=== PATIENT | female | born 1990 | race Native Hawaiian/Other Pacific Islander ===

== ENCOUNTER 2021-06-29 21:13 | Observation (INO) | payer OTHER ==
[~2021-06-29] VITALS: Ht 167.6 cm; Wt 66.7 kg
[2021-06-29] MEDS ORDERED: LACTATED RINGER'S 1,000 ML IV ONE (21:45)
[2021-06-29] MEDS ORDERED: ONDANSETRON HCL 4 MG/2 ML VIAL IV PRN (21:45)
[2021-06-29] MEDS ORDERED: TERBUTALINE SULFATE 1 MG/ML 1ML VIAL SC SCH (21:45)
[2021-06-29] MEDS ORDERED: LACTATED RINGER'S 1,000 ML IV SCH (21:45)
[2021-06-30 01:05] LABS: Urine Bacteria FEW /hpf (None Seen); Urine Blood Negative /uL (Negative); Urine Mucus FEW (None Seen); Urine Specific Gravity 1.024 (1.001-1.035); Urine WBC 8 /hpf (0 - 5)
[2021-06-30 01:12] LABS: Alcohol, Urine < 3.0 mg/dL (0-10); Amphetamine Screen, Urine NEGATIVE (NEGATIVE); Barbiturate Scree,Urine NEGATIVE (NEGATIVE); Benzodiazephine Screen, Urine NEGATIVE (NEGATIVE); Cannabinoid Screen, Urine NEGATIVE (NEGATIVE); Cocaine Screen, Urine NEGATIVE (NEGATIVE); Opiate Scree,Urine NEGATIVE (NEGATIVE); Phencyclidine Screen, Urine NEGATIVE (NEGATIVE)
== END 2021-06-30 00:22 | disposition home or self-care (01) ==
LOC: LDRP 21:13 → EDBD 21:13
PROVIDERS: ADMIT Obstetrics & Gynecology; ATTEND Obstetrics & Gynecology
DX: O21.2 Late vomiting of pregnancy (principal); O26.893 Other specified pregnancy related conditions, third trimester; E86.0 Dehydration; R10.9 Unspecified abdominal pain; Z3A.29 29 weeks gestation of pregnancy; Z79.899 Other long term (current) drug therapy
CPT/HCPCS: 59025; 76805; 80307; 81001; 81002; 94760; 96360; 96361; 96372; G0378; J3105; J2405